=== PATIENT | female | born 1990 | race Caucasian/White ===

== ENCOUNTER → 2020-04-13 | Outpatient (CLI) | payer OTHER ==
[~2020-04-13] MED LIST: PROHANCE 279.3MG/ML 5ML VIAL As Ordered ONE
--- NOTE | 2020-04-13 19:36 | REPVR ---
PROCEDURE INFORMATION: Exam: MR Head Without and With Contrast, Sella Exam date and time: 04/13/2020 4:53 PM Age: 29 years old Clinical indication: Condition or disease; Brain tumor; Benign neoplasm of brain; Additional info: Benign neoplasm pituitary gland TECHNIQUE: Imaging protocol: MR of the head without and with intravenous contrast. Exam focused on the sella. Contrast material: PROHANCE; Contrast volume: 10 ml; Contrast route: IV; COMPARISON: No relevant prior studies available. FINDINGS: Brain: No acute infarct identified on the diffusion-weighted imaging. No evidence of brain parenchymal edema or intracranial mass effect. No significant white matter disease. No abnormal enhancement on the postcontrast imaging. Ventricles: No ventriculomegaly. Sella: The pituitary gland appears normal in size. On the postcontrast images, including dynamic postcontrast acquisition, no discrete differential enhancement identified to be imaging evidence of an underlying adenoma. The pituitary stalk is midline. No suprasellar or parasellar masses. Bones/joints: Unremarkable. IMPRESSION: No discrete pituitary microadenoma identified currently. If there are prior images for direct comparison, an addendum can be made to this report. Electronically signed by: Brielle Osullivan On 04/13/2020 19:36:19 PM
== END ==
LOC: M RAD 15:13
PROVIDERS: ATTEND Nurse Practitioner Family
DX: D35.2 Benign neoplasm of pituitary gland (principal)
CPT/HCPCS: 70553; A9576